=== PATIENT | male | born 1995 | race Caucasian/White ===

== ENCOUNTER 2023-01-19 00:27 | Emergency (ER) | payer SELFPAY ==
[2023-01-19 00:29] VITALS: BP 139/96; PULSE 96; RESP 16; TEMP 37.3; O2SAT 96; BMI 19.5
--- NOTE | 2023-01-19 01:12 | EDS_ITS ---
HPI History of Present Illness Chief Complaint: Cold Sx Informant: patient Narrative Narrative: Patient is a 27-year-old male with no significant past medical history. He states over the last 2 to 3 days he has had congestion and drainage with worsening sore throat and swelling along the left side of his neck. The patient denies any fevers or known sick contact. He states there has been no change to his voice and he reports it is painful to swallow but he has not had difficulty doing so. He states this evening he was having difficulty sleeping secondary to his symptoms and therefore comes in for evaluation. PFSH PFSH Medical History Smoker Home Medications amoxicillin 875 mg-potassium clavulanate 125 mg tablet 1 tab PO BID 10 days #20 tabs 01/19/23 [Rx Last Taken Unknown] hydrocodone-acetaminophen 5-325mg 5mg-325mg 1 tab PO Q6H PRN PRN Pain 3 days #12 TABLETS 01/19/23 [Rx Last Taken Unknown] prednisone 20 mg tablet 40 mg (2 x 20 mg) PO DAILY 7 days #14 tabs 01/19/23 [Rx Last Taken Unknown] Allergy/AdvReac Type Severity Reaction Status Date / Time No Known Allergies Allergy Verified 01/19/23 00:33 Social History Smoking Status: Current every day smoker tobacco type: cigarettes and e- cigarettes ROS ROS ED Constitutional Constitutional ED: Denies chills or fever(s) ENT ENT ED: Reports rhinorrhea and sore throat; Denies ear pain Cardiovascular Cardiovascular: Denies chest pain Respiratory/Chest Respiratory/Chest: Reports cough; Denies dyspnea Gastrointestinal Gastrointestinal: Denies abdominal pain, diarrhea, nausea or vomiting Genitourinary Genitourinary ED: Denies dysuria Musculoskeletal Musculoskeletal: Denies myalgias or neck pain Integumentary Denies rash Neurologic Neurologic: Denies headache(s) Hematologic/Lymphatic Hematologic/Lymphatic: Denies easy bleeding or easy bruising EXAM Physical Exam Const Vital Signs: 01/19/23 00:29 01/19/23 00:34 01/19/23 01:20 Temperature 99.1 F Temperature Source Oral Pulse Rate 96 80 Respiratory Rate 16 16 Respiratory Pattern Normal Blood Pressure 139/96 H Blood Pressure Mean 110 Pulse Ox 96 100 Oxygen Delivery Method Room Air Positive well nourished and well developed General Appearance ED: well developed HEENT HEENT Narrative: Posterior pharynx displays diffuse erythema with tonsillar exudates. No hard palate petechiae. The left tonsil is hypertrophied at +2 and the right is hypertrophied at +1. There are no kissing tonsils noted. Patient does not have trismus change in voice or difficulty with secretions. No airway edema or compromise. Bilateral TMs are retracted but show no secondary changes to suggest infection Nasal mucosa is hyperemic and boggy Eyes PERRL and EOMs intact bilaterally General Eye ED: Negative for scleral icterus Neck supple Neck Narrative: Patient has soft tissue swelling with lymphadenopathy along the left anterior cervical chain. No brawny edema in the submental space to suggest Vince's angina No nuchal rigidity or meningeal signs present Resp normal respiratory effort and clear to auscultation bilaterally Cardio regular rate and regular rhythm Extremity normal to inspection Neuro oriented x3, CN's II-XII intact bilaterally and no sensory deficits noted Sensorium / Orientation: alert Motor Exam: strength 5/5 throughout Psych mental status grossly normal Skin no rashes or lesions noted General Skin Exam: Negative for jaundice MDM MDM MDM Narrative Medical decision making narrative: Patient presented to the ER mildly hypertensive but otherwise afebrile. He had sore throat with tonsillar hypertrophy and lymphadenopathy. Differential diagnosis is for acute strep pharyngitis versus viral pharyngitis versus peritonsillar abscess versus a necrotic lymph node versus Cait-Mar virus versus COVID. The patient does not have unilateral hypertrophy of his tonsils and there is no trismus change in voice or difficulty with secretions and therefore this time I do not believe there is a abscess present. The physical exam with diffuse erythema and exudates as well as asymmetric lymphadenopathy is concerning for secondary infection. Because of this patient will be started on Augmentin and given Decadron secondary to the inflammatory process occurring in the posterior pharynx. We did discuss basic labs and a CT scan for potential abscess formation. However as the patient is not in respiratory distress and does not have trismus change in voice or difficulty with secretions patient elected to hold off at this time and states he will return if symptoms develop or are not improved with his outpatient treatment. However this time because of his physical exam and symptoms there is high likelihood for strep pharyngitis so will be started on antibiotics but as he is not having airway edema or compromise and is able to tolerate secretions he is safe for discharge History & Record Review Discussion w/independent historian: Patient Discharge Plan Triage Chief Complaint: Cold Sx ED Provider: Antonio Narayan Dx/Rx/DC Orders Clinical Impression: Pharyngitis, Lymphadenopathy Instructions: Lymphadenopathy, ED Pharyngitis, Strep (Presumed) Prescriptions: New amoxicillin-pot clavulanate 875-125 mg tablet 1 tab PO BID 10 Days Qty: 20 0RF prednisone 20 mg tablet 40 mg PO DAILY 7 Days Qty: 14 0RF hydrocodone-acetaminophen 5-325 mg tablet 1 tab PO Q6H PRN PRN (Reason: Pain) 3 Days Qty: 12 0RF Stand Alone Forms: ED Work / School Excuse Primary Care Provider: Care Physician,No Primary Referrals: Virgil Barillas MD [Med Staff - Active Staff] - Activity Restrictions/Additional Instructions: Your exam indicates you have a developing infection in the posterior pharynx. Take the antibiotics and steroids as directed to help resolve this. If he gets to the point where you cannot swallow your medication or saliva you may need incision and drainage and therefore return to the ER or see ENT for repeat evalu ation. He will typically take 48 to 72 hours to resolve the infection Disposition Disposition: Home, Self Care Discharge Date/Time: 01/19/23 01:30
[2023-01-19] MEDS: dexAMETHasone 10 MG/ML Vial PO.IVFORM (01:17)
[2023-01-19] MEDS: HYDROcodone Bitartrate/Apap 5/325 Tablet PO (01:17)
[2023-01-19] MEDS: Amox/Clavulanate 875 MG Tablet PO (01:17)
[2023-01-19 01:20] VITALS: PULSE 80; RESP 16; O2SAT 100
== END 2023-01-19 01:30 | disposition home or self-care (01) ==
LOC: ED 01:23
PROVIDERS: Emergency Provider Emergency Medicine; Visit Provider Emergency Medicine
DX: J02.9 Acute pharyngitis, unspecified (principal); R59.0 Localized enlarged lymph nodes; J35.1 Hypertrophy of tonsils; F17.210 Nicotine dependence, cigarettes, uncomplicated; F17.290 Nicotine dependence, other tobacco product, uncomplicated
CPT/HCPCS: 99283

== ENCOUNTER 2023-06-01 04:48 | Emergency (ER) | payer SELFPAY ==
[2023-06-01 04:49] VITALS: BP 149/92; PULSE 86; RESP 16; TEMP 35.7; O2SAT 98; BMI 35.2
--- NOTE | 2023-06-01 05:01 | EDS_ITS ---
HPI History of Present Illness Chief Complaint: Dental Informant: patient Onset/Context/Timing Onset: Yesterday Narrative Narrative: Patient presents secondary to left-sided dental pain. He states he started developing pain last night, took Tylenol, and tried to go to bed. He woke this morning with continued left-sided pain. He states he knows he has some bad teeth and has not been to a dentist in quite some time. PFSH PFSH Medical History Smoker Home Medications naproxen 500 mg tablet (Naprosyn) 500 mg PO BID PRN pain #20 tabs 06/01/23 [Rx Last Taken Unknown] penicillin V potassium 500 mg tablet 500 mg PO 4X/DAY #40 tabs 06/01/23 [Rx Last Taken Unknown] Allergy/AdvReac Type Severity Reaction Status Date / Time No Known Allergies Allergy Verified 01/19/23 00:33 Social History Smoking Status: Current every day smoker tobacco type: cigarettes and e- cigarettes ROS ROS ED Constitutional Constitutional ED: Denies chills or fever(s) Eyes Eyes: Denies discharge from eye(s) ENT ENT ED: Reports other Details: Left-sided dental pain ; Denies discharge from eye(s), rhinorrhea or sore throat Cardiovascular Cardiovascular: Denies chest pain Respiratory/Chest Respiratory/Chest: Denies cough or dyspnea Gastrointestinal Gastrointestinal: Denies abdominal pain, nausea or vomiting Musculoskeletal Musculoskeletal: Denies back pain or extremity pain Integumentary Denies Abrasions or rash Neurologic Neurologic: Denies headache(s) or weakness Psychiatric Psychiatric: Denies anxiety or depression Allergic/Immunologic Allergic/Immunologic ED: Denies lip swelling or urticaria EXAM Physical Exam Const Vital Signs: 06/01/23 04:49 06/01/23 05:19 Temperature 96.2 F L Temperature Source Oral Pulse Rate 86 85 Respiratory Rate 16 16 Blood Pressure 149/92 H Blood Pressure Mean 111 Pulse Ox 98 98 Oxygen Delivery Method Room Air Positive well nourished and well developed General Appearance ED: well developed HEENT HEENT Narrative: No facial edema or erythema. Intraoral examination reveals some decay and inflammation around the first molar on the left mandibular surface. There is some gum edema noted along the left maxillary surface laterally over the molars as well. No trismus. Posterior pharynx exam is unremarkable. No evidence of Ludewig's angina. Eyes EOMs intact bilaterally Neck no lymphadenopathy Lymph Lymphatic: no lymphadenopathy noted Chest Wall inspection of chest normal and palpation of chest normal Resp normal respiratory effort and clear to auscultation bilaterally Cardio regular rate, regular rhythm and no murmurs GI non-tender Palpation: soft Extremity normal to inspection Neuro oriented x3 and moves all extremities Psych mental status grossly normal Skin no rashes or lesions noted MDM MDM MDM Narrative Medical decision making narrative: Patient be treated with naproxen and Pen-Vee K, first dose is given here. Prescription sent to the pharmacy for him. Dental referral list also provided as he does not have a local dentist. Return instructions provided. Discharge Plan Triage Chief Complaint: Dental ED Provider: Jaimee Hernandez Dx/Rx/DC Orders Clinical Impression: Odontalgia Instructions: ED Dental Pain Prescriptions: New naproxen [Naprosyn] 500 mg tablet 500 mg PO BID PRN (Reason: pain) Qty: 20 0RF penicillin V potassium 500 mg tablet 500 mg PO 4X/DAY Qty: 40 0RF Primary Care Provider: Care Physician,No Primary Referrals: Care Physician,No Primary [Primary Care Provider] - Activity Restrictions/Additional Instructions: Dental referral list provided. Disposition Disposition: Home, Self Care Discharge Date/Time: 06/01/23 05:20
[2023-06-01] MEDS: Naproxen 500 MG Tablet PO (05:16)
[2023-06-01] MEDS: Penicillin Vk 250 MG Tablet 500 MG PO (05:16)
[2023-06-01 05:19] VITALS: PULSE 85; RESP 16; O2SAT 98
== END 2023-06-01 05:20 | disposition home or self-care (01) ==
LOC: ED 05:12
PROVIDERS: Emergency Provider Emergency Medicine; Visit Provider Emergency Medicine
DX: K08.89 Other specified disorders of teeth and supporting structures (principal); K02.9 Dental caries, unspecified; F17.210 Nicotine dependence, cigarettes, uncomplicated; F17.290 Nicotine dependence, other tobacco product, uncomplicated
CPT/HCPCS: 99283

== ENCOUNTER 2023-07-11 15:04 | Emergency (ER) | payer SELFPAY ==
[2023-07-11 15:05] VITALS: BP 130/79; PULSE 77; RESP 18; TEMP 37.2; O2SAT 97; BMI 33.3
--- NOTE | 2023-07-11 15:19 | EX.ED.VIS.UR ---
HPI HPI - URI History of Present Illness Chief Complaint: Sore Throat Detail of Chief Complaint: Sore throat Informant: patient Narrative Narrative: Patient presents to the emergency department complaint of sore throat that started initially 3 days ago. He complains of enlarged lymph nodes. He complains of painful swallowing. Patient complains of a headache. He had some chills and sweats and subjective fever at home. Denies sick contacts. Patient took several COVID test that were negative. Denies cough. ROS ROS ED Review of Systems ROS Unobtainable: other Constitutional Constitutional ED: Reports chills, fever(s) and lethargy; Denies sweats or weight loss Eyes Eyes: Denies blurry vision, change in vision or diplopia ENT ENT ED: Reports sore throat; Denies rhinorrhea Cardiovascular Cardiovascular: Denies chest pain, orthopnea or racing heartbeat Respiratory/Chest Respiratory/Chest: Denies cough, dyspnea, dyspnea on exertion, orthopnea or sputum Gastrointestinal Gastrointestinal: Denies abdominal pain, diarrhea, nausea or vomiting Genitourinary Genitourinary ED: Denies dysuria, hematuria or urinary frequency Musculoskeletal Musculoskeletal: Denies arthralgias, back pain, myalgias or neck pain Integumentary Denies abscess, Abrasions or rash Neurologic Neurologic: Denies headache(s) or weakness Psychiatric Psychiatric: Denies anxiety, depression or suicidal thoughts Endocrine Endocrinology: Denies polydipsia, polyphagia or polyuria Hematologic/Lymphatic Hematologic/Lymphatic: Denies easy bleeding, easy bruising or lymphadenopathy Allergic/Immunologic Allergic/Immunologic ED: Denies mouth swelling, tongue swelling or urticaria PFSH PFSH Medical History Smoker Home Medications naproxen 500 mg tablet (Naprosyn) 500 mg PO BID PRN pain #20 tabs 06/01/23 [Rx Last Taken Unknown] penicillin V potassium 500 mg tablet 500 mg PO 4X/DAY #40 tabs 06/01/23 [Rx Last Taken Unknown] amoxicillin 500 mg tablet 500 mg PO TID #30 tabs 07/11/23 [Rx Last Taken Unknown] Allergy/AdvReac Type Severity Reaction Status Date / Time No Known Allergies Allergy Verified 07/11/23 15:04 Social History Smoking Status: Current every day smoker tobacco type: cigarettes and e-cigarettes EXAM Physical Exam Const Vital Signs: 07/11/23 15:05 Temperature 99 F Temperature Source Temporal Pulse Rate 77 Respiratory Rate 18 Blood Pressure 130/79 H Blood Pressure Mean 96 Pulse Ox 97 Oxygen Delivery Method Room Air Positive well nourished and well developed General Appearance ED: well developed and NAD HEENT Reports TM's clear and moist mucous membranes HEENT Narrative: Patient with diffuse pharyngeal erythema with enlarged tonsils are +3. Faint exudates bilaterally. Uvula midline. No trismus. No nuchal rigidity on exam. There is no hoarse voice or change in his phonation. No stridor. No significant tenderness over the trachea. normocephalic and atraumatic; Negative for trauma or tenderness Tympanic Membrane ED: Yes TM's clear Eyes PERRL and EOMs intact bilaterally General Eye ED: Negative for pale conjunctiva or scleral icterus Neck no lymphadenopathy, supple and no JVD General: Negative for tenderness Chest Wall inspection of chest normal and palpation of chest normal Chest: Negative for tenderness Resp normal respiratory effort and clear to auscultation bilaterally Effort and Inspection: Negative for respiratory distress or pain with movement Auscultation: Negative for rhonchi, wheezes or diminished lung sounds Cardio regular rate, regular rhythm, S1 normal heart sound, S2 normal heart sound and no murmurs Peripheral Pulses: pulses 2+ throughout GI normal to inspection, nondistended, normoactive bowel sounds, soft to palpation, non-tender, non-distended and no masses Back/Spine no CVA tenderness and no thoracic nor lumbar tenderness Extremity normal to inspection General Extremety ED: Negative for edema General Extremity: Negative for edema Neuro oriented x3, CN's II-XII intact bilaterally, no sensory deficits noted and gait normal Sensorium / Orientation: awake, alert, oriented to person, oriented to place and oriented to time Motor Exam: strength 5/5 throughout and strength abnormal Psych mental status grossly normal Skin no rashes or lesions noted and no wounds MDM MDM MDM Narrative Medical decision making narrative: Patient presents with sore throat. Will obtain a test for strep A. Test for strep A was positive. Patient was started on amoxicillin given first dose in the emergency department. Patient will be referred to ENT if symptoms persist or worsen. He is advised to return if difficulty swallowing or condition should worsen anyway. Lab Data Attestation: I reviewed the patient's lab results. Discharge Plan Triage Chief Complaint: Sore Throat ED Provider: Nathan Conte Dx/Rx/DC Orders Clinical Impression: Strep pharyngitis Instructions: ED Pharyngitis, Strep (Confirmed) Prescriptions: New amoxicillin 500 mg tablet 500 mg PO TID Qty: 30 0RF No Action naproxen [Naprosyn] 500 mg tablet 500 mg PO BID PRN (Reason: pain) Qty: 20 0RF penicillin V potassium 500 mg tablet 500 mg PO 4X/DAY Qty: 40 0RF Primary Care Provider: Care Physician,No Primary Referrals: Marc Crow MD [Med Staff - Active Staff] - 3-5 Days Care Physician,No Primary [Primary Care Provider] - Disposition Disposition: Home, Self Care Discharge Date/Time: 07/11/23 17:02
--- OUTSIDE RECORDS SUMMARY | 2023-07-11 15:52 | XMS RPT_ITS | CCD ---
Author Name Unknown Address [address] [place] [id number] Organization [facility] Results Test Name Value Interpretation Reference Range Facil ity Summary Purpose Family History No Family History Records Found Advance Directives No Advanced Directives Records Found Additional Source Comments (unrecognized sect ion and content) No Status Records Found INFORMATION SOURCE (unrecogn ized section and content) FOR RECORDS PERTAINING TO PATIENTS WHO ARE OR HAVE BEEN ENROLLED IN A CHEMICAL DEPENDENCY/SUBSTANCEABUSE PROGRAM, SOME INFORMATION MAY BE OMITTED. This clinical summary was aggregated from multiple sources. Caution should be exercised in using it in the provision of clinical care. This summary normalizes information from multiple sources, and as a consequence, information in this document may materially change the coding, format and clinical context of patient data. In addition, data may be omitted in some cases. CLINICAL DECISIONS SHOULD BE BASED ON THE PRIMARY CLINICAL RECORDS. [employer] provides no warranty or guarantee of the accuracy or completeness of information in this document.
[2023-07-11] MEDS: AMOXICILLIN 500 MG CAPSULE PO (16:19)
== END 2023-07-11 17:02 | disposition home or self-care (01) ==
PROVIDERS: Emergency Provider Emergency Medicine; Visit Provider Emergency Medicine
DX: J02.0 Streptococcal pharyngitis (principal); F17.210 Nicotine dependence, cigarettes, uncomplicated; F17.290 Nicotine dependence, other tobacco product, uncomplicated
CPT/HCPCS: 87651; 99282

== ENCOUNTER 2024-12-07 10:11 | Emergency (ER) | payer SELFPAY ==
[2024-12-07 10:12] VITALS: BP 138/102; PULSE 90; RESP 16; TEMP 36.9; O2SAT 98; BMI 35.6
--- NOTE | 2024-12-07 10:38 | EDS_ITS ---
HPI History of Present Illness Chief Complaint: Dental Informant: patient Onset/Context/Timing Onset: Days (2) Context: Gradual Onset Timing: Intermittent Quality: Sharp Location: Left lower premolar Worsened by: Cold liquids, hot liquids, chewing Relieved by: - (Nothing) Associated Symptoms Assocated Symptom - Dental: cold sensitivity and hot sensitivity; Negative for fever, jaw swelling or face swelling Narrative Narrative: Patient presents with left lower dental pain that has been getting worse over the past 2 days. Patient states that it is intermittent. Patient states that it last for approximately 10 to 15 minutes. Patient describes it as sharp. Patient states it is over the left lower premolar area. Patient states it is worse with any chewing, drinking hot liquids, cold liquids, or swallowing. Toyin ent denies any fevers or chills. Patient denies any swelling of the jaw or face. Patient denies any nausea or vomiting. PFSH PFSH Medical History Smoker Home Medications ?Medication ?Instructions ?Recorded ?Last Taken ?Type amoxicillin 500 mg tablet 500 mg PO TID #30 tabs 12/07 Unknown Rx Allergy/AdvReac Type Severity Reaction Status Date / Time No Known Allergies Allergy Verified 12/07/24 10:45 Surgical History no surgical history no surgical history Social History Smoking Status: Current every day smoker tobacco type: cigarettes and e- cigarettes ROS ROS ED Constitutional Constitutional ED: Denies chills or fever(s) Eyes Eyes: Denies blurry vision or change in vision ENT ENT ED: Denies rhinorrhea or sore throat Cardiovascular Cardiovascular: Denies chest pain or palpitations Respiratory/Chest Respiratory/Chest: Denies cough or dyspnea Gastrointestinal Gastrointestinal: Reports diarrhea; Denies nausea or vomiting Genitourinary Genitourinary ED: Denies dysuria or hematuria Musculoskeletal Musculoskeletal: Denies back pain or neck pain Integumentary Denies abscess or rash Neurologic Neurologic: Reports headache(s) and weakness Allergic/Immunologic Allergic/Immunologic ED: Denies mouth swelling or urticaria EXAM Physical Exam Const Vital Signs: 12/07/24 10:12 Temperature 98.5 F Temperature Source Oral Pulse Rate 90 Respiratory Rate 16 Blood Pressure 138/102 H Blood Pressure Mean 114 Pulse Ox 98 Oxygen Delivery Method Room Air Positive well nourished and well developed Constitutional Narrative: BMI is 35.6. General Appearance ED: well developed and NAD HEENT HEENT Narrative: There is a large dental carry noted over the left lower second premolar. There is some gingival edema around this tooth. There is no fluctuance. There is no discharge or drainage noted. Oral mucosa is pink and moist. Oropharynx is clear. Airway is patent. There is no sublingual edema or adenopathy. There is no evidence of Vince's angina. Mouth ED: Yes oral and palatal mucosa normal Mouth: oral and palatal mucosa normal Teeth and Gingiva: caries and gingiva abnormal Positive for gingival edema Throat: posterior oropharynx normal Neck no lymphadenopathy, supple and no JVD General: Negative for anterior neck swelling, tenderness or submandibular swelling Neuro oriented x3, CN's II-XII intact bilaterally, moves all extremities, no focal motor deficits and no sensory deficits noted Sensorium / Orientation: alert Motor Exam: strength 5/5 throughout Psych mental status grossly normal Skin no rashes or lesions noted MDM MDM MDM Narrative Medical decision making narrative: Patient was advised that this is most likely infected dental caries. Patient was given a dose of amoxicillin here. Patient was given a prescription for amoxicillin. Patient was instructed to take Tylenol or ibuprofen as needed for pain. Patient was instructed to follow-up with a dentist in 5 to 7 days. Patient was instructed to return if worse in any way. Patient understood and was agreeable with the plan. All questions were answered. Discharge Plan Triage Chief Complaint: Dental ED Provider: Joby Vargas Dx/Rx/DC Orders Clinical Impression: Infected dental caries, Tobacco use disorder Instructions: ED Dental Pain, ED Dental Cavity Prescriptions: New amoxicillin 500 mg tablet 500 mg PO TID Qty: 30 0RF Primary Care Provider: Care Physician,No Primary Referrals: Care Physician,No Primary [Primary Care Provider] - Dentist,Your [STAFF PHYSICIAN] - 5-7 Days Print Language: [place] Disposition Disposition: Home, Self Care
[2024-12-07] MEDS: AMOXICILLIN 500 MG CAPSULE PO (11:08)
[2024-12-07 11:13] VITALS: BP 130/92; PULSE 84; RESP 16; TEMP 36.2; O2SAT 97
--- NOTE | 2024-12-07 12:07 | CM.ED ---
Social Work SW introduced self and role with [facility]. Patient stated he was having dental pain but would not have insurance for another 28 days as he just started a new job. SW gave patient list of dental clinics and oral surgeons that will accept low income and sliding scale payments. Patient appreciative of same. Tami Fish, RETAIL SALES SPECIALIST, LEGAL NURSE CONSULTANT
== END 2024-12-07 11:14 | disposition home or self-care (01) ==
LOC: ED 10:52
PROVIDERS: Emergency Provider Emergency Medicine; Visit Provider Emergency Medicine
DX: K02.9 Dental caries, unspecified (principal); F17.210 Nicotine dependence, cigarettes, uncomplicated; F17.290 Nicotine dependence, other tobacco product, uncomplicated
CPT/HCPCS: 99283

== ENCOUNTER 2024-12-11 17:00 | Emergency (ER) | payer SELFPAY ==
[2024-12-11 17:00] VITALS: BP 151/91; PULSE 87; RESP 18; TEMP 36.8; O2SAT 98; BMI 32.4
--- OUTSIDE RECORDS SUMMARY | 2024-12-11 17:18 | XMS RPT_ITS | CCD ---
Author Organization [facility] Care Team Providers Care Bag Patcher Name Role Phone Care Physician, No Primary Primary Care Provider Unavailable Dr. Joby Vargas DO Emergency Provider [phone] Joby Vargas Attending Unavailable Care Physician, No Primary Primary Care Unava ilable Medications Current Medications Medication Drug Class(es) Dates Sig (Normalized) Sig (Original) amoxicillin 500 mg oral tablet (3 sources) Penicillin-class Antibacterial Start: 07-11-2023 End: 12-07-2024 take 1 tablet by mouth three times daily Amoxicillin 500 mg tablet Active 500 mg PO THREE TIMES A DAY 30 0 December 07, 2024 12:00am Completed/Discontinued Medications Medication Drug Class(es) Dates Sig (Normalized) Sig (Original) acetaminophen 325 mg / HYDROcodone bitartrate 5 mg oral tablet (4 sources) Opioid Agonist Start: 01-19-2023 End: 06-01-2023 Hydrocodone-Acetami nophen 5-325 mg tablet Discontinued 1 {tbl} PO EVERY 6 HOURS NEEDED as needed for Pain 12 3 January 19, 2023 June 01, 2023 5:54am Pharyngitis Acute pharyngitis, unspecified Start: 01-19-2023 End: 06-01-2023 take 1 tablet by mouth every six hours as needed Hydrocodone-Acetaminophen Discontinued 1 TABLET PO EVERY 6 HOURS NEEDED 12 January 19, 2023 June 01, 2023 4:54am amoxicillin 875 mg / clavulanate 125 mg oral tablet (4 sources) Penicillin-class Antibacterial Start: 01-19-2023 End: 06-01-2023 Amoxicillin-Pot Clavulanate 875-125 mg tablet Discontinued 1 {tbl} PO TWICE A DAY 20 10 0 January 19, 2023 12:00am June 01, 2023 5:54am Start: 01-19-2023 End: 06-01-2023 take 1 tablet by mouth twice daily Amoxicillin-Pot Clavulanate Discontinued 1 TABLET PO TWICE A DAY 20 January 18, 2023 11:00pm June 01, 2023 4:54am naproxen 500 mg oral tablet (3 sources) Nonsteroidal Anti-inflammatory Drug Start: 06-01-2023 End: 12-07-2024 take 1 tablet by mouth twice daily as needed for pain Naproxen (Naprosyn) 500 mg tablet Discontinued 500 mg PO TWICE A DAY as needed for pain 20 0 June 01, 2023 1:00am December 07, 2024 10:45am penicillin v potassium 500 mg oral tablet (3 sources) Start: 06-01-2023 End: 12-07-2024 take 1 tablet by mouth four times daily Penicillin V Potassium 500 mg tablet Discontinued 500 mg PO 4 TIMES DAILY 40 0 June 01, 2023 1:00am December 07, 2024 10:45am predniSONE 20 mg oral tablet (4 sources) Start: 01-19-2023 End: 06-01-2023 take 2 tablets by mouth once daily Prednisone 20 mg tablet Discontinued 40 mg PO DAILY 14 7 January 19, 2023 12:00am June 01, 2023 5:54am Start: 01-19-2023 End: 06-01-2023 take 40 mg by mouth once daily Prednisone Discontinued 40 MG PO DAILY 14 7 January 18, 2023 11:00pm June 01, 2023 4:54am Problems Problem Classification Problem Date Documented Da te Episodic/Chronic Disorders of teeth and jaw (4 sources) Toothache; Translations: [Other specified disorders of teeth and supporting structures] 06-01-2023 Episodic Lymphadenitis (4 sources) Lymphadenopathy; Translations: [Generalized enlarged lymph nodes] 01-19-2023 Episodic Other upper respiratory infections (6 sources) Pharyngitis; Translations: [Acute pharyngitis, unspecified] 01-19-2023 Episodic Substance-related disorders (1 source) Tobacco user; Translations: [Nicotine dependence, unspecified, uncomplicated] 12-07-2024 Chronic Results Test Name Value Interpretation Reference Range Facil ity Emergency Department Summary on 12-07-[address] [facility] Department [address] [place] [address] Emergency Department Summary 12/07/24 MR#: [id number] Acct: [id number] Name: BETHANY MAYORGA Rep #: [id number] : 1995 29 From: Jboy Vargas DO PCP: Care Physician,No Primary Status:DEP ER Location: ED HPI History of Present Illness Chief Complaint: Dental Informant: patient Onset/Context/Timin g Onset: Days (2) Context: Gradual Onset Timing: Intermittent Quality: Sharp Location: Left lower premolar Worsened by: Cold liquids, hot liquids, chewing Relieved by: - (Nothing) Associated Symptoms Assocated Symptom - Dental: cold sensitivity and hot sensitivity; Negative for fever, jaw swelling or face swelling Narrative Narrative: Patient presents with left lower dental pain that has been getting worse over the past 2 days. Patient states that it is intermittent. Patient states that it last for approximately 10 to 15 minutes. Patient describes it as sharp. Patient states it is over the left lower premolar area. Patient states it is worse with any chewing, drinking hot liquids, cold liquids, or swallowing. Patient denies any fevers or chills. Patient denies any swelling of the jaw or face. Patient denies any nausea or vomiting. PFSH PFSH Medical History Smoker Home Medications ???Medication ???Instructions ???Recorded ???Last Taken ???Type amoxicillin 500 mg tablet 500 mg PO TID #30 tabs 12/07/24 Un known Rx Allergy/AdvReac Type Severity Reaction Status Date / Time No Known Allergies Allergy Verified 12/07/24 10:45 Surgical History no surgical history no surgical history Social History Smoking Status: Current every day smoker tobacco type: cigarettes and e-cigarettes ROS ROS ED Constitutional Constitutional ED: Denies chills or fever(s) Eyes Eyes: Denies blurry vision or change in vision ENT ENT ED: Denies rhinorrhea or sore throat Cardiovascular Cardiovascular: Denies chest pain or palpitations Respiratory/Chest Respiratory/Chest: Denies cough or dyspnea Gastrointestinal Gastrointestinal: Reports diarrhea; Denies nausea or vomiting Genitourinary Genitourinary ED: Denies dysuria or hematuria Musculoskeletal Musculoskeletal: Denies back pain or neck pain Integumentary Denies abscess or rash Neurologic Neurologic: Reports headache(s) and weakness Allergic/Immunologi c Allergic/Immunologi c ED: Denies mouth swelling or urticaria EXAM Physical Exam Const Vital Signs: 12/07/24 10:12 Temperature 98.5 F Temperature Source Oral Pulse Rate 90 Respiratory Rate 16 Blood Pressure 138/102 H Blood Pressure Mean 114 Pulse Ox 98 Oxygen Delivery Method Room Air Positive well nourished and well developed Constitutional Narrative: BMI is 35.6. General Appearance ED: well developed and NAD HEENT HEENT Narrative: There is a large dental carry noted over the left lower second premolar. There is some gingival edema around this tooth. There is no fluctuance. There is no discharge or drainage noted. Oral mucosa is pink and moist. Oropharynx is clear. Airway is patent. There is no sublingual edema or adenopathy. There is no evidence of Vince's angina. Mouth ED: Yes oral and palatal mucosa normal Mouth: oral and palatal mucosa normal Teeth and Gingiva: caries and gingiva abnormal Positive for gingival edema Throat: posterior oropharynx normal Neck no lymphadenopathy, supple and no JVD General: Negative for anterior neck swelling, tenderness or submandibular swelling Neuro oriented x3, CN's II-XII intact bilaterally, moves all extremities, no focal motor deficits and no sensory deficits noted Sensorium / Orientation: alert Motor Exam: strength 5/5 throughout Psych mental status grossly normal Skin no rashes or lesions noted MDM MDM MDM Narrative Medical decision making narrative: Patient was advised that this is most likely infected dental caries. Patient was given a dose of amoxicillin here. Patient was given a prescription for amoxicillin. Patient was instructed to take Tylenol or ibuprofen as needed for pain. Patient was instructed to follow-up with a dentist in 5 to 7 days. Patient was instructed to return if worse in any way. Patient understood and was agreeable with the plan. All questions were answered. Discharge Plan Triage Chief Complaint: Dental ED Provider: Joby Vargas Dx/Rx/DC Orders Clinical Impression: Infected dental caries, Tobacco use disorder Instructions: ED Dental Pain, ED Dental Cavity Prescriptions: New amoxicillin 500 mg tablet 500 mg PO TID Qty: 30 0RF Primary Care Provider: Care Physician,No Primary Referrals: Care Physician,No Primary [Primary Care Provider] - Dentist (more content not included)... Normal [facility] S. pyogenes rRNA Probe Ql (T hroat)Ordered By: Nathan Conte on 07-11-2023 Streptococcus pyogenes (PCR) Streptococcus Group A [facility] .Auto Diffon 04-20-2019 Ammonia (P) [Mass/Vol] 0.50 10 3/mcL Normal 0.15-1.00 [facility] ([place]) Comment on above: Performed By: #### B MP, GFR #### [place] [address] #### ADIFF, CBC, ANEU #### [address] [address] Basophils (Bld) [#/Vol] 0.10 10 3/mcL Normal 0.00-0.19 [facility] ([place]) Comment on above: Performed By: #### B MP, GFR #### [place] [address] #### ADIFF, CBC, ANEU #### [address] [address] Basophils/100 WBC (Bld) 0.8 % Normal 0.0-2.5 [facility] ([place]) Comment on above: Performed By: #### B MP, GFR #### [place] [address] #### ADIFF, CBC, ANEU #### [address] [address] Eosinophils (Bld) [#/Vol] 0.10 10 3/mcL Normal 0.00-0.40 [facility] ([place]) Comment on above: Performed By: #### B MP, GFR #### [place] [address] #### ADIFF, CBC, ANEU #### [address] [address] Eosinophils/100 WBC (Bld) 1.5 % Normal 0.0-7.0 [facility] ([place]) Comment on above: Performed By: #### B MP, GFR #### [place] [address] #### ADIFF, CBC, ANEU #### [address] [address] Lymphocytes (Bld) [#/Vol] 3.10 10 3/mcL Normal 0.77-3.85 [facility] ([place]) Comment on above: Performed By: #### B MP, GFR #### [address] [address] #### ADIFF, CBC, ANEU #### [address] [address] Lymphocytes/100 WBC (Bld) 39.2 % Normal 10.0-50.0 [facility] ([place]) Comment on above: Performed By: #### B MP, GFR #### [place] [address] #### ADIFF, CBC, ANEU #### [address] [address] Monocytes/100 WBC (Bld) 6.2 % Normal 1.7-13.0 [facility] ([place]) Comment on above: Performed By: #### B MP, GFR #### [place] [address] #### ADIFF, CBC, ANEU #### [address] [address] Neutrophils/100 WBC (Bld) 52.3 % Normal 37.0-80.0 [facility] ([place]) Comment on above: Performed By: #### B MP, GFR #### [place] [address] #### ADIFF, CBC, ANEU #### [address] [address] .GFRon 04-20-2019 GFR Non- 103 ml/min/1.73sqm Normal [facility] ([place]) Comment on above: Result Comment: GFR Population mean for , Non- Americans Ages 20-29 = 116 mL/min/1.73 sq.m. Ages 30-39 = 107 mL/min/1.73 sq.m. Ages 40-49 = 99 mL/min/1.73 sq.m. Ages 50-59 = 93 mL/min/1.73 sq.m. Ages 60-69 = 85 mL/min/1.73 sq.m. Ages 70+ = 75 mL/min/1.73 sq.m. Chronic Kidney Disease: Less than 60 mL/min/1.73 square meters End Stage Renal Disease: Less than 15 mL/min/1.73 square meters Performed By: #### B MP, GFR #### [place] [address] #### JH, CBC, ANEU #### [address] [address] GFR 125 ml/min/1.73sqm Normal [facility] ([place]) Comment on above: Result Comment: GFR Population mean for , Non- Americans Ages 20-29 = 116 mL/min/1.73 sq.m. Ages 30-39 = 107 mL/min/1.73 sq.m. Ages 40-49 = 99 mL/min/1.73 sq.m. Ages 50-59 = 93 mL/min/1.73 sq.m. Ages 60-69 = 85 mL/min/1.73 sq.m. Ages 70+ = 75 mL/min/1.73 sq.m. Chronic Kidney Disease: Less than 60 mL/min/1.73 square meters End Stage Renal Disease: Less than 15 mL/min/1.73 square meters Performed By: #### B MP, GFR #### [place] [address] #### JH, CBC, ANEU #### [address] [address] .NEUABSon 04-20-2019 Neutrophils (Bld) [#/Vol] 4.20 10 3/mcL Normal 2.85-6.16 [facility] ([place]) Comment on above: Performed By: #### B MP, GFR #### [place] [address] #### ADCLEOPATRA, CBC, ANEU #### [address] [address] BMPon 04-20-2019 Calcium [Mass/Vol] 9.2 mg/dL Normal 8.4-10.2 [facility] ([place]) Comment on above: Performed By: #### B MP, GFR #### [place] [address] #### ADIFF, CBC, ANEU #### [address] [address] Chloride [Moles/Vol] 102 mmol/L Normal 98-107 [facility] ([place]) Comment on above: Performed By: #### B MP, GFR #### [place] [address] #### ADIFF, CBC, ANEU #### [address] [address] CO2 [Moles/Vol] 27 mmol/L Normal 22-29 [facility] ([place]) Comment on above: Performed By: #### B MP, GFR #### [place] [address] #### ADIFF, CBC, ANEU #### [address] [address] Creatinine [Mass/Vol] 0.92 mg/dL Normal 0.70-1.30 [facility] ([place]) Comment on above: Performed By: #### B MP, GFR #### [place] [address] #### ADIFF, CBC, ANEU #### [address] [address] Electrolyte Balance 13.0 mEq/L Normal [facility] ([place]) Comment on above: Performed By: #### B MP, GFR #### [place] [address] #### ADIFF, CBC, ANEU #### [address] [address] Glucose [Mass/Vol] 95 mg/dL Normal 70-105 [facility] ([place]) Comment on above: Performed By: #### B MP, GFR #### [place] [address] #### ADIFF, CBC, ANEU #### [address] [address] Potassium [Moles/Vol] 3.8 mmol/L Normal 3.5-5.1 [facility] ([place]) Comment on above: Performed By: #### B MP, GFR #### [address] [address] #### ADIFF, CBC, ANEU #### [address] [address] Sodium [Moles/Vol] 142 mmol/L Normal 136-145 [facility] ([place]) Comment on above: Performed By: #### B MP, GFR #### [place] [address] #### ADIFF, CBC, ANEU #### [address] [address] Urea nitrogen [Mass/Vol] 13 mg/dL Normal 7-18 [facility] ([place]) Comment on above: Performed By: #### B MP, GFR #### [place] [address] #### ADIFF, CBC, ANEU #### [address] [address] Urea nitrogen/Creatinine [Mass ratio] 14 ratio Normal 7-27 [facility] ([place]) Comment on above: Performed By: #### B MP, GFR #### [place] [address] #### ADIFF, CBC, ANEU #### [address] [address] CBCon 04-20-2019 Erythrocyte distribution width (RBC) [Ratio] 13.5 % Normal 11.5-14.5 [facility] ([place]) Comment on above: Performed By: #### B MP, GFR #### [place] [address] #### ADIFF, CBC, ANEU #### [address] [address] Hematocrit (Bld) [Volume fraction] 46.5 % Normal 42.0-52.0 [facility] ([place]) Comment on above: Performed By: #### B MP, GFR #### [place] [address] #### ADIFF, CBC, ANEU #### [address] [address] Hemoglobin (Bld) [Mass/Vol] 15.6 G/dL Normal 14.0-18.0 [facility] ([place]) Comment on above: Performed By: #### B MP, GFR #### [place] [address] #### ADIFF, CBC, ANEU #### [address] [address] MCH (RBC) [Entitic mass] 29.3 pg Normal 27.0-31.2 [facility] ([place]) Comment on above: Performed By: #### B MP, GFR #### [place] [address] #### ADIFF, CBC, ANEU #### [address] [address] MCHC (RBC) [Mass/Vol] 33.6 G/dL Normal 31.8-35.4 [facility] ([place]) Comment on above: Performed By: #### B MP, GFR #### [place] [address] #### ADIFF, CBC, ANEU #### [address] [address] MCV (RBC) [Entitic vol] 87.2 fL Normal 80.0-94.0 [facility] ([place]) Comment on above: Performed By: #### B MP, GFR #### [place] [address] #### ADIFF, CBC, ANEU #### [address] [address] Platelet mean volume (Bld) [Entitic vol] 8.7 fL Normal 7.4-10.4 [facility] ([place]) Comment on above: Performed By: #### B MP, GFR #### [address] [address] #### ADIFF, CBC, ANEU #### [address] [address] Platelets (Bld) [#/Vol] 170 10 3/mcL Normal 130-400 [facility] ([place]) Comment on above: Performed By: #### B MP, GFR #### [place] [address] #### ADIFF, CBC, ANEU #### [address] [address] RBC (Bld) [#/Vol] 5.33 10 6/mcL Normal 4.04-6.13 [facility] ([place]) Comment on above: Performed By: #### B MP, GFR #### [place] [address] #### ADIFF, CBC, ANEU #### [address] [address] WBC (Bld) [#/Vol] 8.00 10 3/mcL Normal 4.60-10.80 [facility] ([place]) Comment on above: Performed By: #### B MP, GFR #### [place] [address] #### ADIFF, CBC, ANEU #### [address] [address] Vital Signs Date Time Vital Sign Value Performing Clinician Bobbi sequeira 12-07-2024 11:13 Body temperature 97.2 [degF] No Primary Care Physician [facility] 12-07-2024 11:13040 Diastolic blood pressure 92 mm[Hg] No Primary Care Physician [facility] 12-07-2024 11:13040 Heart rate 84 /min No Primary Care Physician [facility] 12-07-2024 11:13040 Respiratory rate 16 /min No Primary Care Physician [facility] 12-07-2024 11:130400 SaO2% (BldA) [Mass fraction] 97 % No Primary Care Physician [facility] 12-07-2024 11:13-0400 Systolic blood pressure 130 mm[Hg] No Primary Care Physician [facility] 12-07-2024 10:12-0400 Body height 177.8 cm No Primary Care Physician [facility] 12-07-2024 10:12-0400 Body mass index (BMI) [Ratio] 35.6 kg/m2 No Primary Care Physician [facility] 12-07-2024 10:12-0400 Body weight 112.49 kg No Primary Care Physician [facility] 07-11-2023 15:05-0500 Body height 177.8 cm [facility] 07-11-2023 15:05-0500 Body mass index (BMI) [Ratio] 33.3 kg/m2 [facility] 07-11-2023 15:05-0500 Body temperature 99 [degF] [facility] 07-11-2023 15:05-0500 Body weight 105.3 kg [facility] 07-11-2023 15:05-0500 Diastolic blood pressure 79 mm[Hg] [facility] 07-11-2023 15:05-0500 Heart rate 77 /min [facility] 07-11-2023 15:05-0500 Respiratory rate 18 /min [facility] 07-11-2023 15:05-0500 SaO2% (BldA) [Mass fraction] 97 % [facility] 07-11-2023 15:05-0500 Systolic blood pressure 130 mm[Hg] [facility] 06-01-2023 05:19-0500 Heart rate 85 /min [facility] 06-01-2023 05:19-0500 Respiratory rate 16 /min [facility] 06-01-2023 05:19-0500 SaO2% (BldA) [Mass fraction] 98 % [facility] 06-01-2023 04:49-0500 Body height 177.8 cm [facility] 06-01-2023 04:49-0500 Body mass index (BMI) [Ratio] 35.2 kg/m2 [facility] 06-01-2023 04:49-0500 Body temperature 96.2 [degF] [facility] 06-01-2023 04:49-0500 Body weight 111.5 kg [facility] 06-01-2023 04:49-0500 Diastolic blood pressure 92 mm[Hg] [facility] 06-01-2023 04:49-0500 Systolic blood pressure 149 mm[Hg] [facility] 01-19-2023 01:20-0400 Heart rate 80 /min [facility] 01-19-2023 01:20-0400 Respiratory rate 16 /min [facility] 01-19-2023 01:20-0400 SaO2% (BldA) [Mass fraction] 100 % [facility] 01-19-2023 00:29-0400 Body height 177.8 cm [facility] 01-19-2023 00:29-0400 Body mass index (BMI) [Ratio] 19.5 kg/m2 [facility] 01-19-2023 00:29-0400 Body temperature 99.1 [degF] [facility] 01-19-2023 00:29-0400 Body weight 61.8 kg [facility] 01-19-2023 00:29-0400 Diastolic blood pressure 96 mm[Hg] [facility] 01-19-2023 00:29-0400 Systolic blood pressure 139 mm[Hg] [facility] Encounters Encounter Date Encounter Type Care Provider Facility Start: 12-07-2024 End: 12-07-2024 Emergency department patient visit No Primary Care Physician -Emergency Department Work Phone: Start: 07-11-2023 End: 07-11-2023 Emergency department patient visit [facility]-Emergency Department Work Phone: Start: 06-01-2023 End: 06-01-2023 Emergency department patient visit [facility]-Emergency Department Work Phone: Start: 01-19-2023 End: 01-19-2023 Emergency department patient visit [facility]-Emergency Department Work Phone: Procedures Date Procedure Procedure Detail Performing Clinician Start: 07-11-2023 Streptococcus pyogen es rRNA assay Plan of Treatment Date Care Activity Detail Author Start: 12-07-2024 [facility] Start: 07-11-2023 [facility] Start: 06-01-2023 [facility] Patient Education [facility] Work Phone: Patient referral [facility] Work Phone: Payers Date Payer Category Payer Self-pay Unknown [id number] Social History Date Type Detail Facility Start: 01-19-2023 End: 07-11-2023 Tobacco smoking status MTIS Unknown if ever smoked [facility] Start: 1995 Sex Assigned At Male [facility] Start: 12-07-2024 Tobacco smoking stat us [facility] Smokes tobacco daily (finding) [facility] Mental Status Date Assessment Result Facility 01-19-2023 Cognitive function Level Of Cons ciousness Awake;Alert;Appropriate [facility] Work Phone: Evaluation note Note Date & Type Note Facility Evaluation note No assessment information availa ble [facility] Work Phone: Hospital Discharge instructions Note Date & Type Note Facility Hospital Discharge instructions Additional Instructions Your exam indicates you have a developing infection in the posterior pharynx. Take the antibiotics and steroids as directed to help resolve this. If he gets to the point where you cannot swallow your medication or saliva you may need incision and drainage and therefore return to the ER or see ENT for repeat evaluation. He will typically take 48 to 72 hours to resolve the infection [facility] Work Phone: Hospital Discharge instructions Note Date & Type Note Facility Hospital Discharge instructions Additional Instructions Dental referral list provided. [facility] Work Phone: Reason for referral (narrative) Note Date & Type Note Facility Reason for referral (narrative) No reason for referral information available [facility] Work Phone: Summary Purpose Family History No Family History Records FoundNo Family History Records Found Advance Directives No Advanced Directives Records Found Advance Directive Response Recorded Date/ Time Living Will No January 19, 2023 12:33am Power of Service Center Appraiser No January 12:33am Advance Directive Response Recorded Date/ Time Living Will No June 01 4:54am Power of Service Center Appraiser No June 01, 2023 4:54am Advance Directive Response Recorded Date/ Time Living Will No July 11, 2023 3:17pm Power of Service Center Appraiser No July 10 3:17pm Advance Directive Response Recorded Date/ Time Do you have a Healthcare Power of Service Center Appraiser? No December 07, 2024 10:44am Chief Complaint and Reason for Visit Chief Complaint throat pain Chief Complaint dental Chief Complaint dental SORE THROAT Chief Complaint Admit Date dental December 07, 2024 10: 11am Additional Source Comments (unrecognized sect ion and content) No Status Records FoundNo Status Records Found INFORMATION SOURCE (unrecogn ized section and content) DATE CREATED AUTHOR 04/21/2019 [facility] ([place]) DATE CREATED AUTHOR AUTHOR'S ORGANIZ ATION [facility]20[facility] Care Teams (unrecognized sec tion and content) Team Status: Active Member Role Status Dates No Primary Care Physician Primary Care Provider Active Team Status: Inactive Member Role Status Dates Dr. Antonio Narayan , Emergency Provider Active No Primary Care Physician Primary Care Provider Active Team Status: Inactive Member Role Status Dates No Primary Care Physician Primary Care Provider Active Dr. Jaimee Hernandez MD Emergency Provider Active Team Status: Inactive Member Role Status Dates No Primary Care Physician Primary Care Provider Active Dr. Jaimee Hernandez MD Attending Provider, Emergency Provider Active Team Status: Inactive Member Role Status Dates No Primary Care Physician Primary Care Provider Active Dr. Nathan Conte , Emergency Provider Active Team Status: Active Member Role/Relationship Status Dates No Primary Care Physician Primary Care Provider Active Team Status: Inactive Member Role/Relationship Status Dates No Primary Care Physician Primary Care Provider Active Start: December 07, 2024 End: December 07, 2024 Dr. Joby Vargas , DO Emergency Provider Active Start: December 07, 2024 End: December 07, 2024 Goals (unrecognized section and content) Goals may be documented in a n alternate sectionGoals may be documented in an alternate sectionGoals may be documented in an alternate sectionGoals may be documented in an alternate section FOR RECORDS PERTAINING TO PATIENTS WHO ARE [...] BE BASED ON THE PRIMARY CLINICAL RECORDS. [facility] [employer] [facility]. provides no warranty or guarantee of the accuracy or completeness of information in this document.
--- NOTE | 2024-12-11 17:31 | EDS_ITS ---
HPI History of Present Illness Chief Complaint: Dental Informant: patient Onset/Context/Timing Onset: Weeks (1) Context: Gradual Onset Timing: Continuous Quality: Sharp, aching Location: Left lower premolar Worsened by: Hot and cold liquids Relieved by: - (Nothing) Associated Symptoms Assocated Symptom - Dental: jaw swelling, cold sensitivity and hot sensitivity; Negative for fever or face swelling Narrative Narrative: Patient presents with dental pain getting worse for the past week. Recently was given prescription for amoxicillin which he has been taking for the past 5 days. Patient states this has not helped. Ibuprofen and weight until his employer benefits kick in in order to see a dentist. Patient states he is attempting to schedule a dentist appointment. Patient admits to hot and cold sensitivity. P atient admits to some swelling of his left lower jaw. Patient describes the pain as sharp and aching. Patient denies any fevers or chills. PFSH PFSH Medical History Smoker no medical history Home Medications ?Medication ?Instructions ?Recorded ?Last Taken ?Type amoxicillin 875 mg-potassium 875 mg PO Q12H #20 TABLET S 12/11/24 Unknown Rx clavulanate 125 mg tablet Allergy/AdvReac Type Severity Reaction Status Date / Time No Known Allergies Allergy Verified 12/11/24 17:01 Surgical History no surgical history no surgical history Social History Smoking Status: Current every day smoker tobacco type: cigarettes and e- cigarettes ROS ROS ED Constitutional Constitutional ED: Denies chills or fever(s) Eyes Eyes: Denies blurry vision or change in vision ENT ENT ED: Denies rhinorrhea or sore throat Cardiovascular Cardiovascular: Denies chest pain or palpitations Respiratory/Chest Respiratory/Chest: Denies cough or dyspnea Gastrointestinal Gastrointestinal: Denies nausea or vomiting Genitourinary Genitourinary ED: Denies dysuria or hematuria Musculoskeletal Musculoskeletal: Reports neck pain; Denies back pain Integumentary Denies abscess or rash Neurologic Neurologic: Reports headache(s); Denies weakness Allergic/Immunologic Allergic/Immunologic ED: Denies mouth swelling or urticaria EXAM Physical Exam Const Vital Signs: 12/11/24 17:00 Temperature 98.3 F Temperature Source Oral Pulse Rate 87 Respiratory Rate 18 Blood Pressure 151/91 H Blood Pressure Mean 111 Pulse Ox 98 Oxygen Delivery Method Room Air Positive well nourished and well developed Constitutional Narrative: BMI is 32.4. General Appearance ED: well developed and NAD HEENT HEENT Narrative: Oral mucosa is pink and moist. Dental caries noted lower first premolar and first molar. There is no gingival edema noted. There is no fluctuance. There is drainage. No evidence of any abscess. There is no sublingual edema. There is no anterior neck swelling. There is no evidence of Vince's angina. Mouth ED: Yes oral and palatal mucosa normal Mouth: oral and palatal mucosa normal Teeth and Gingiva: caries and gingiva abnormal Positive for gingival edema Throat: posterior oropharynx normal Neck supple and no JVD Lymph Lymphatic: no lymphadenopathy noted Neuro oriented x3, CN's II-XII intact bilaterally, moves all extremities, no focal motor deficits and no sensory deficits noted Sensorium / Orientation: alert Motor Exam: strength 5/5 throughout Psych mental status grossly normal MDM MDM MDM Narrative Medical decision making narrative: Patient was advised that these are infected dental caries. Patient was instructed to stop taking the amoxicillin. Patient was given a prescription for Augmentin to take instead. Patient was given a prescription for a short [place]. Patient was instructed to follow-up with a dentist in 5 to 7 days for further evaluation. Patient understood and was agreeable with the plan. All questions were answered. Discharge Plan Triage Chief Complaint: Dental ED Provider: Joby Vargas Dx/Rx/DC Orders Clinical Impression: Infected dental caries, Tobacco use disorder Instructions: ED Dental Pain, ED Dental Cavity Prescriptions: New amoxicillin-pot clavulanate 875-125 mg tablet 875 mg PO Q12H Qty: 20 0RF Discontinued amoxicillin 500 mg tablet 500 mg PO TID Qty: 30 0RF Primary Care Provider: Care Physician,No Primary Referrals: Care Physician,No Primary [Primary Care Provider] - Dentist,Your [STAFF PHYSICIAN] - 5-7 Days Print Language: Tanzanian Disposition Disposition: Home, Self Care
[2024-12-11] MEDS: HYDROcodone Bitartrate/Apap 5/325 Tablet PO (17:39)
[2024-12-11 17:51] VITALS: BP 132/86; PULSE 81; RESP 16; TEMP 36.7; O2SAT 99
== END 2024-12-11 17:52 | disposition home or self-care (01) ==
PROVIDERS: Emergency Provider Emergency Medicine; Visit Provider Emergency Medicine
DX: K02.9 Dental caries, unspecified (principal); F17.210 Nicotine dependence, cigarettes, uncomplicated; F17.290 Nicotine dependence, other tobacco product, uncomplicated
CPT/HCPCS: 99282

== ENCOUNTER 2024-12-12 07:46 | Emergency (ER) | payer SELFPAY ==
[2024-12-12 07:48] VITALS: BP 140/96; PULSE 98; RESP 14; TEMP 37.2; O2SAT 97; BMI 35.9
--- NOTE | 2024-12-12 08:24 | EDS_ITS ---
HPI History of Present Illness Chief Complaint: Dental Informant: patient Narrative Narrative: 29-year-old male presenting with dental pain, he states it has been bothering him for about a week left mandibular first molar. This is his third visit here for the same thing. States has been taking Tylenol and the pain is significant. He denies any fevers, chills, systemic symptoms. States he is having pain into his jaw and down into his left submandibular area/neck. He has no issues swallowing. He initially was placed on amoxicillin then then switched to Augmentin 2 days ago. He states he occasionally tastes foul discharge in his mouth. No bleeding. States he has had issues with his teeth in this area in the past. States he is in so much pain that he has not been able to go to his new job lately. He is looking for something that he can take but also work with. [facility] History Smoker Home Medications ?Medication ?Instructions ?Recorded ?Last Taken ?Type amoxicillin 875 mg-potassium 875 mg PO Q12H #20 TABLET S 12/11/24 Unknown Rx clavulanate 125 mg tablet meloxicam 15 mg tablet 15 mg PO DAILY PRN pain #10 tabs 12/12/24 Unknown Rx tramadol 50 mg tablet 50 mg PO Q6H PRN pain 2 days #8 12/12/24 Unknown Rx tabs Allergy/AdvReac Type Severity Reaction Status Date / Time No Known Allergies Allergy Verified 12/12/24 07:47 Social History Smoking Status: Current every day smoker tobacco type: cigarettes and e- cigarettes ROS ROS ED Constitutional Constitutional ED: Denies chills or fever(s) Eyes Eyes: Denies change in vision or double vision ENT ENT ED: Reports dental pain; Denies sinus pain or throat swelling Cardiovascular Cardiovascular: Denies chest pain or palpitations Respiratory/Chest Respiratory/Chest: Denies cough or dyspnea Integumentary Denies abscess or rash Neurologic Neurologic: Denies headache(s), paresthesias or weakness EXAM Physical Exam Const Vital Signs: 12/12/24 07:48 Temperature 98.9 F Temperature Source Temporal Pulse Rate 98 Respiratory Rate 14 Blood Pressure 140/96 H Blood Pressure Mean 110 Pulse Ox 97 Oxygen Delivery Method Room Air Positive well nourished and well developed Constitutional Narrative: In no distress, conversive, no excessive secretions. General Appearance ED: well developed and NAD HEENT HEENT Narrative: Patient has focal tenderness approximately tooth #19, there does appear to be some sergio in the side of it. There is no active discharge. There is no bleeding. The tooth is not loosened. The gingiva is normal. There is no associated gingival or soft tissue abscess. He does have some tenderness in the submandibular area without any asymmetry, swelling, collection. He has no trismus. The mandible itself in this area is mildly tender, but this is not necessarily specific to the bone itself. He has a missing tooth in front of this 1 assumed to be #20, but otherwise his intraoral exam is extremely unremarkable. Face and Sinus: sinuses nontender Throat: posterior oropharynx normal Eyes PERRL and EOMs intact bilaterally Neck no lymphadenopathy and supple Resp normal respiratory effort Neuro oriented x3 and CN's II-XII intact bilaterally Sensorium / Orientation: alert Gait (Neuro): normal gait Psych mental status grossly normal and thought process normal Skin no rashes or lesions noted and no wounds MDM MDM MDM Narrative Medical decision making narrative: Vital signs are normal he is well-appearing, I think he is having some reactive lymphadenopathy, I do not think he needs evaluated for osteomyelitis or anything advanced with regards to deep tissue infection at this time. I do not think he has yet failed the antibiotics which I would continue, giving him a prescription for meloxicam to take when he is working and tramadol to take for sleep which he is also asking for. He understands not to take tramadol while working or driving and he has no desire to do so. We discussed reasons to return, but for now I think he can continue the antibiotic and follow-up with dentistry as soon as he is able. He is comfortable with that overall plan. Discharge Plan Triage Chief Complaint: Dental ED Provider: Marvin Randall Dx/Rx/DC Orders Clinical Impression: Infected dental caries Instructions: ED Dental Cavity Prescriptions: New tramadol 50 mg tablet 50 mg PO Q6H PRN (Reason: pain) 2 Days Qty: 8 0RF meloxicam 15 mg tablet 15 mg PO DAILY PRN (Reason: pain) Qty: 10 0RF Continued amoxicillin-pot clavulanate 875-125 mg tablet 875 mg PO Q12H Qty: 20 0RF Primary Care Provider: Care Physician,No Primary Referrals: Dentist,Your [STAFF PHYSICIAN] - As soon as possible Print Language: Frisian Disposition Disposition: Home, Self Care
[2024-12-12 08:33] VITALS: BP 133/81; PULSE 98; RESP 14; TEMP 37.2; O2SAT 97
== END 2024-12-12 08:34 | disposition home or self-care (01) ==
PROVIDERS: Emergency Provider Emergency Medicine; Visit Provider Emergency Medicine
DX: K02.9 Dental caries, unspecified (principal); F17.290 Nicotine dependence, other tobacco product, uncomplicated; F17.210 Nicotine dependence, cigarettes, uncomplicated
CPT/HCPCS: 99282